=== PATIENT | male | born 1945 | race Caucasian/White ===

== ENCOUNTER 2020-11-26 00:18 | Day surgery (SDC) | payer MEDICARE, OTHER, SELFPAY ==
[2020-11-23 09:48] VITALS: BMI 31.4
--- NOTE | 2020-11-25 17:43 | PM.HPGS ---
History of Present Illness History of Present Illness Consent: Risks, benefits, and alternatives have been discussed and questions answered. Patient agrees to proceed with procedure. Chief complaint: neoplasm screening Narrative: Artem Costa is a 75 year old male referred for coloncancer screening. He has had polyps in the past Review of Systems Review of Systems: All systems reviewed & are unremarkable except as noted in HPI and below PMFSH Past Medical History Medical History Diabetes Hyperlipidemia Hypertension PVD (peripheral vascular disease) with claudication Social History Social History Smoking status: Never smoker Alcohol intake: current Drinks per week: 4 Alcohol use details: CEEEY Substance use: never Substance use type: does not use Living arrangements: alone Spiritual care concerns: No Meds Home Medications and Allergies Home Medications Medication Instructions Recorded Confirmed Type aspirin [Adult Low Dose Aspirin] 81 mg PO DAILY 11/23/20 11/26/20 History cholecalciferol (vitamin D3) 50 mcg PO DAILY 11/23/20 11/26/20 History [Vitamin D3] docusate sodium [Stool Softener] 100 mg PO DAILY 11/23/20 11/26/20 History fenofibrate 160 mg PO DAILY 11/23/20 11/26/20 History furosemide 40 mg PO BID 11/23/20 11/26/20 History gabapentin 300 mg PO BID 11/23/20 11/26/20 History glipizide 10 mg PO BID 11/23/20 11/26/20 History lisinopril 20 mg PO DAILY 11/23/20 11/26/20 History metformin 1,000 mg PO BID 11/23/20 11/26/20 History simvastatin 40 mg PO DAILY 11/23/20 11/26/20 History vitamin A-vitamin C-vit E-min 1 tablet PO DAILY 11/23/20 11/26/20 History [Ocutabs] Allergies Allergy/AdvReac Type Severity Reaction Status Date / Time No Known Allergies Allergy Verified 11/26/20 07:46 Exam Const: General: alert Orientation/consciousness: patient oriented x3 Resp: Auscultation: clear to auscultation bilaterally Cardio: Rhythm: regular rhythm GI: GI Palp: Yes Soft to palpation and No Tenderness to palpation present (GI) Neuro: General: patient oriented x3 Assessment and Plan Assessment and plan (1) Colon cancer screening: Code(s): Z12.11 - Encounter for screening for malignant neoplasm of colon Status: Acute Assessment and Plan: Colonoscopy with possible biopsy or polypectomy or cautery or injection of substances.
[2020-11-26 07:48] VITALS: BP 129/63; PULSE 68; RESP 16; TEMP 35.6; O2SAT 100; BMI 31.6
[2020-11-26] MEDS: LACTATED RINGERS 1,000 ML 150 ML IV CONT ×2 (08:07→09:42)
[2020-11-26 08:08] LABS: Glucose Point of Care 167 mg/dl (65-105)
--- NOTE | 2020-11-26 08:16 | WPDANESEPPF ---
Anes - Initial Pre Proc Eval Procedure: Operation Date: 11/26/20 08:30 Proposed Procedures p Screening Colonoscopy - Jack Rojo MD Date/Time: 11/26/20 08:16 Surgeon: Jack Rojo MD Pre Op Diagnosis: neoplasm screening Patient Data Age: 75 Gender: M Height: 1.88 m Weight: 112 kg Last Vital Signs Temp 96.1 F L 11/26/20 07:48 Pulse 68 11/26/20 07:48 Resp 16 11/26/20 07:48 BP 129/63 11/26/20 07:48 Pulse Ox 100 11/26/20 07:48 Allergies Allergy/AdvReac Type Severity Reaction Status Date / Time No Known Allergies Allergy Verified 11/26/20 07:46 Home Medications Medication Instructions Recorded Confirmed Type aspirin [Adult Low Dose Aspirin] 81 mg PO DAILY 11/23/20 11/26/20 History cholecalciferol (vitamin D3) 50 mcg PO DAILY 11/23/20 11/26/20 History [Vitamin D3] docusate sodium [Stool Softener] 100 mg PO DAILY 11/23/20 11/26/20 History fenofibrate 160 mg PO DAILY 11/23/20 11/26/20 History furosemide 40 mg PO BID 11/23/20 11/26/20 History gabapentin 300 mg PO BID 11/23/20 11/26/20 History glipizide 10 mg PO BID 11/23/20 11/26/20 History lisinopril 20 mg PO DAILY 11/23/20 11/26/20 History metformin 1,000 mg PO BID 11/23/20 11/26/20 History simvastatin 40 mg PO DAILY 11/23/20 11/26/20 History vitamin A-vitamin C-vit E-min 1 tablet PO DAILY 11/23/20 11/26/20 History [Ocutabs] Laboratory Tests 11/26/20 07:56 POC Capillary Glucose 167 mg/dl H mg/dl (65-105) Patient hx anesthesia problems: none Family hx anesthesia problems: none PMFSH Past Medical History Medical History (Updated 11/26/20 @ 08:16 by Eren Pelayo MD) Diabetes Hyperlipidemia Hypertension PVD (peripheral vascular disease) with claudication Social History Social History Smoking status: Never smoker Alcohol intake: current Drinks per week: 4 Alcohol use details: WHISKEY Substance use: never Substance use type: does not use Living arrangements: alone Spiritual care concerns: No Anes - Eval Final PreProcedure Day of Procedure 11/26/20 08:16 Patient weight: obese Heart: irregular rhythm Lungs: clear to auscultation Airway: Mallampati scale class II Neurological: alert and oriented Last oral intake: >/= 8 hours ASA classification: III Emergent: no Anesthetic plan: proceed Anesthesia type and monitoring: general GIVS and standard monitoring Informed Consent: The patient's anesthetic plan and its attendant risks and benefits were discussed with the patient/family/POA. Questions were solicited and answers provided to the satisfaction of the patient/family/POA.
--- NOTE | 2020-11-26 09:10 | ECG_ITS ---
Measurements Intervals [place] Rate: 68 P: 50 MA: 154 QRS: -1 QRSD: 104 T: 37 QT: 384 QTc: 408 Interpretive Statements SINUS RHYTHM VENTRICULAR BIGEMINY BORDERLINE R WAVE PROGRESSION, ANTERIOR LEADS BASELINE ARTIFACT- I, II, III, AVR, AVL, AVF ABNORMAL ECG Electronically Signed On 11-30-2020 13:19:50 CDT by Michael Vasquez D.O.
[2020-11-26] MEDS: SIMETHICONE ORAL SUSPENSION 20 MG/0.3 ML 30 ML BOTTLE 0.6 ML IRRIGATION (09:52)
--- NOTE | 2020-11-26 10:00 | SUR.OPER ---
Resolution Clip Lot: [id number] Exp: 2023-09-01
[2020-11-26 10:07] VITALS: BP 89/44; PULSE 68; RESP 18; O2SAT 99
[2020-11-26 10:17] VITALS: BP 92/48; PULSE 68; RESP 18; O2SAT 99
[2020-11-26 10:27] VITALS: BP 113/55; PULSE 68; RESP 18; O2SAT 99
== END 2020-11-26 10:47 | disposition home or self-care (01) ==
PROVIDERS: PCP Internal Medicine; Visit Provider Internal Medicine Gastroenterology
PROC: 0DJD8ZZ Inspection of Lower Intestinal Tract, Via Natural or Artificial Opening Endoscopic (ICD-10-PCS; CPT 45378; principal; 2020-11-26 08:30)
DX: Z12.11 Encounter for screening for malignant neoplasm of colon (principal); D12.3 Benign neoplasm of transverse colon; I10 Essential (primary) hypertension; E78.5 Hyperlipidemia, unspecified; E11.51 Type 2 diabetes mellitus with diabetic peripheral angiopathy without gangrene; Z79.82 Long term (current) use of aspirin; Z79.84 Long term (current) use of oral hypoglycemic drugs; E66.9 Obesity, unspecified; Z68.31 Body mass index [BMI] 31.0-31.9, adult
CPT/HCPCS: 45385; 82948; 88305; 93005; J2001; J2704; J7120